=== PATIENT | male | born 1945 | race Asian ===

== ENCOUNTER 2023-12-06 09:51 | Inpatient (IN) | payer OTHER, MEDICAID ==
[~2023-12-06] VITALS: Ht 162.6 cm; Wt 68.0 kg
[~2023-12-06 09:51] MED LIST: ACET-1182 PO; ACET-2619 PO; AMLO5TAB PO; ASPI-1093 PO; BISA10SU1 RC; BRIM5SOL3 BOTH EYES; CARV3.12 PO; CRAN450C PO; DORZ10SO1 BOTH EYES; FERR325E14 PO; FINA-54 PO; LINA5TAB PO; MAGN400S60 PO; MIRABULK PO; NA P135N9 RC; NUTR30LI7 PO; PANT40EC PO; PRAS10TA2 PO; ROSU5TAB PO; TAMS0.4C96 PO; TRAV2.5S BOTH EYES; TRAV5SOL OP
[2023-12-06 09:52] VITALS: BP 186/71; PULSE 84; RESP 14; TEMP 97.7; O2SAT 100
[2023-12-06 10:23] LABS: BASOPHILS # (AUTO) 0.1 K/uL (0.00-0.22); BASOPHILS % (AUTO) 0.8 % (0.0-2.0); EOSINOPHILS # (AUTO) 0.7 K/uL (0-0.4); EOSINOPHILS % (AUTO) 6.8 % (0.0-4.0); HEMATOCRIT 30.9 % (36-52); HEMOGLOBIN 10.5 g/dL (12.0-18.0); LYMPHOCYTES # (AUTO) 1.4 K/uL (2.0-11.5); LYMPHOCYTES % (AUTO) 13.6 % (20.5-51.1); MEAN CORPUSCULAR HEMOGLOBIN 35 pg (27-31); MEAN CORPUSCULAR HGB CONC 34 g/dL (33-37); MONOCYTES # (AUTO) 0.8 K/uL (0.8-1.0); MONOCYTES % (AUTO) 8.2 % (1.7-9.3); NEUTROPHILS % (AUTO) 70.6 % (42.2-75.2); PLATELET COUNT (AUTO) 234 K/uL (140-450); RED CELL DISTRIBUTION WIDTH 16.3 % (11.6-13.7)
[2023-12-06 10:29] LABS: BILIRUBIN,URINE 1+ (NEGATIVE); BLOOD, URINE NEGATIVE (NEGATIVE); LEUKOCYTE ESTERASE ,URINE 2+ (NEGATIVE); NITRITE, URINE POSITIVE (NEGATIVE); PH,URINE 8.5 (5.0-9.0); PROTEIN,URINE 2+ (NEGATIVE); UGLUCOSE NEGATIVE (NEGATIVE); UROBILINOGEN,URINE 0.2 EU/dL (0.2 - 1)
[2023-12-06 10:30] LABS: APPEARANCE,URINE CLOUDY (CLEAR); COLOR,URINE AMBER (YELLOW)
[2023-12-06 10:37] LABS: AMPHETAMINE, URINE NEGATIVE ng/ml (NEG <=1000); BARBITURATE, URINE NEGATIVE ng/ml (NEG <=200); BENZODIAZEPINE, URINE NEGATIVE ng/mL (NEG <=200); CANNABINOID, URINE NEGATIVE ng/mL (NEG <=50); COCAINE, URINE NEGATIVE ng/mL (NEG <=300); OPIATE, URINE NEGATIVE ng/mL (NEG <=2000); PHENCYCLIDINE SCREEN,URINE NEGATIVE ng/mL (NEG <=25)
[2023-12-06 10:40] LABS: PROTHROMBIN TIME 10.5 secs (10.8-13.4)
[2023-12-06 10:42] LABS: RBC,URINE 0-5 /HPF (0-5)
[2023-12-06 10:43] LABS: BACTERIA,URINE >30 (MANY) /HPF (None Seen); SQUAMOUS EPITHELIAL CELL,UR 0-3 (FEW) /LPF (0-3 (FEW)); WBC,URINE >25 (MANY) /HPF (0-5)
[2023-12-06 10:46] LABS: ICTOTEST POSITIVE (NEGATIVE)
[2023-12-06 10:48] LABS: ANION GAP 16.2 (8-16); CARBON DIOXIDE 28.7 mmol/L (21-32); CHLORIDE 99 mmol/L (98-107); GLUCOSE 99 mg/dL (74-106); POTASSIUM 4.9 mmol/L (3.5-5.1); SODIUM SERUM 139 mmol/L (136-145)
[2023-12-06 10:51] LABS: ALANINE AMINOTRANSFERASE 16 U/L (12-78); ALBUMIN 3.5 g/dL (3.4-5.0); ALKALINE PHOSPHATASE 61 U/L (50-136); ASPARTATE AMINOTRANSFERASE 12 U/L (15-37); BILIRUBIN,DIRECT 0.1 mg/dL (0.0-0.3); CREATINE KINASE, TOTAL 35 U/L (39-308); TOTAL BILIRUBIN 0.4 mg/dL (0.0-1.0); TOTAL PROTEIN, SERUM 7.6 g/dL (6.4-8.2)
[2023-12-06 11:13] LABS: CREATININE 6.9 mg/dL (0.6-1.3); UREA NITROGEN, BLOOD 61 mg/dL (7-18)
[2023-12-06 11:14] LABS: SALICYLATE < 2.8 mg/dL (2.8-20.0)
[2023-12-06 11:15] LABS: ACETAMINOPHEN < 0.5 ug/ml (10-30); ALCOHOL, BLOOD < 3 mg/dL (<10)
[2023-12-06] MEDS ORDERED: cefTRIAXone 1,000 MG VIAL ONE (12:27)
[2023-12-06] MEDS ORDERED: ONDANSETRON 4 MG/2 ML VIAL IVP PRN (12:55)
[2023-12-06] MEDS ORDERED: HYDROcodone/APAP 5/325 MG 1 TAB TAB PO PRN (12:55)
[2023-12-06] MEDS ORDERED: ALBUTEROL 0.083% 2.5 MG/3 ML NEBU INH PRN (12:55)
[2023-12-06] MEDS: ASPIRIN 81 MG TAB.CHEW PO ONE (12:58)
[2023-12-06] MEDS ORDERED: bisacodyL 10 MG SUPP RC PRN (13:00)
[2023-12-06] MEDS ORDERED: DEXTROSE 50% 50 ML SYR IVP PRN (13:00)
[2023-12-06] MEDS: FERROUS SULFATE 325 MG TABEC PO SCH (13:33)
[2023-12-06] MEDS: BLOOD GLUCOSE MONITORING 1 DEV DEV FS SCH (17:17)
[2023-12-06 20:00] VITALS: BP 134/56; PULSE 72; RESP 18; TEMP 97.5; O2SAT 100
[2023-12-06] MEDS: DORZOLAMIDE 2% OP 10 ML BTL BOTH EYES SCH (20:12)
[2023-12-06] MEDS: carvediloL 3.125 MG TAB PO SCH (20:13)
[2023-12-06] MEDS: BRIMONIDINE TARTRATE 0.2% OP 5 ML BTL BOTH EYES SCH (20:43)
[2023-12-07 04:00] VITALS: BP 150/50; PULSE 74; RESP 16; TEMP 97.5; O2SAT 97
[2023-12-07] MEDS: PANTOPRAZOLE 40 MG TABEC PO SCH (06:02)
[2023-12-07 08:00] VITALS: BP 143/91; PULSE 100; PULSE 74; RESP 19; TEMP 98.1; O2SAT 100
[2023-12-07] MEDS: ECOTRIN 81 MG TABEC PO SCH (08:50)
[2023-12-07] MEDS: amLODIPine 5 MG TAB PO SCH (08:51)
[2023-12-07] MEDS: FINASTERIDE 5 MG TAB PO SCH (08:51)
[2023-12-07] MEDS: TAMSULOSIN 0.4 MG CAP PO SCH (08:55)
[2023-12-07] MEDS: POLYETHYLENE GLYCOL 17 GM/PKT PO SCH (09:00)
[2023-12-07] MEDS: INSULIN LISPRO SLIDING SCALE 100 UNITS/ML VIAL SUBQ PRN (12:12)
[2023-12-07 12:25] VITALS: BP 143/91; PULSE 100; RESP 19; TEMP 98.1; O2SAT 100
[2023-12-07] MEDS ORDERED: LIDOCAINE 5% 1 EA PATCH TP ONE (12:45)
[2023-12-07] MEDS ORDERED: LIDOCAINE OINTMENT 5% 35 GM TUBE TP SCH (12:45)
[2023-12-07 16:00] VITALS: BP 132/41; PULSE 77; RESP 18; TEMP 97.3; O2SAT 99
[2023-12-07] MEDS ORDERED: ALBUTEROL SULFATE/IPRATROPIU 3 ML SOL IH PRN (17:10)
[2023-12-07] MEDS: guaiFENesin DM 200/20 MG-10 ML 10 ML UDC PO PRN (17:20)
[2023-12-07 19:28] VITALS: O2SAT 98
[2023-12-07 20:00] VITALS: BP 123/50; PULSE 74; RESP 18; TEMP 98; O2SAT 99
[2023-12-08 04:00] VITALS: BP 122/50; PULSE 64; RESP 18; TEMP 96.7; O2SAT 99
[2023-12-08] MEDS: ACETAMINOPHEN 325 MG TAB PO PRN (06:00)
[2023-12-08 06:47] LABS: BASOPHILS % (AUTO) 0.6 % (0.0-2.0); EOSINOPHILS # (AUTO) 0.3 K/uL (0-0.4); HEMATOCRIT 28.6 % (36-52); HEMOGLOBIN 9.8 g/dL (12.0-18.0); LYMPHOCYTES # (AUTO) 1.8 K/uL (2.0-11.5); LYMPHOCYTES % (AUTO) 26.1 % (20.5-51.1); MEAN CORPUSCULAR HEMOGLOBIN 35 pg (27-31); MEAN CORPUSCULAR HGB CONC 34 g/dL (33-37); MEAN CORPUSCULAR VOLUME 102.2 fL (80-94); MONOCYTES # (AUTO) 0.6 K/uL (0.8-1.0); MONOCYTES % (AUTO) 8.8 % (1.7-9.3); NEUTROPHILS # (AUTO) 4.2 K/uL (1.8-7.7); NEUTROPHILS % (AUTO) 60.5 % (42.2-75.2); PLATELET COUNT (AUTO) 191 K/uL (140-450); RED BLOOD CELL COUNT(AUTO) 2.79 MIL/uL (4.20-6.10); WHITE BLOOD COUNT (AUTO) 6.9 K/uL (4.8-10.8)
[2023-12-08 06:56] LABS: ANION GAP 13.8 (8-16); CALCIUM 8.4 mg/dL (8.5-10.1); CARBON DIOXIDE 28.2 mmol/L (21-32); CHLORIDE 100 mmol/L (98-107); GLUCOSE 108 mg/dL (74-106); SODIUM SERUM 138 mmol/L (136-145); UREA NITROGEN, BLOOD 50 mg/dL (7-18)
[2023-12-08 07:43] VITALS: O2SAT 100
[2023-12-08 08:00] VITALS: BP 126/61; PULSE 66; RESP 17; RESP 18; TEMP 97.3; O2SAT 98; O2SAT 99
[2023-12-08] MEDS ORDERED: SULF-58 PO (17:14)
[2023-12-08 17:27] VITALS: BP 126/61; PULSE 66; RESP 18; TEMP 97.3
== END 2023-12-08 18:47 | disposition home or self-care (01) | DRG 70 ==
LOC: MED 09:51 → MMU 12:58 → MTU 14:13
PROVIDERS: ADMIT Internal Medicine; ATTEND Internal Medicine
PROC: 5A1D70Z Performance of Urinary Filtration, Intermittent, Less than 6 Hours Per Day (ICD-10-PCS; principal; 2023-12-07)
DX: G93.41 Metabolic encephalopathy (principal); I21.A1 Myocardial infarction type 2; J96.01 Acute respiratory failure with hypoxia; N18.6 End stage renal disease; N39.0 Urinary tract infection, site not specified; I13.2 Hypertensive heart and chronic kidney disease with heart failure and with stage 5 chronic kidney disease, or end stage renal disease; E46 Unspecified protein-calorie malnutrition; I50.9 Heart failure, unspecified; E11.21 Type 2 diabetes mellitus with diabetic nephropathy; D63.1 Anemia in chronic kidney disease; I25.10 Atherosclerotic heart disease of native coronary artery without angina pectoris; K21.9 Gastro-esophageal reflux disease without esophagitis; E11.22 Type 2 diabetes mellitus with diabetic chronic kidney disease; Z95.5 Presence of coronary angioplasty implant and graft; Z99.2 Dependence on renal dialysis; Z79.899 Other long term (current) drug therapy; Z68.25 Body mass index [BMI] 25.0-25.9, adult
CPT/HCPCS: 36415; 70450; 71045; 80048; 80076; 80305; 81001; 82550; 82948; 83605; 83880; 84484; 85025; 85610; 87040; 87081; 87086; 87186; 90935; 93005; 96374; 99285; G0480; G0482; J0696; J1815; J7060